=== PATIENT | female | born 1935 | race Caucasian/White ===

== ENCOUNTER 2020-12-08 13:49 | Inpatient (IN) | payer MEDICARE, OTHER ==
[~2020-12-08] VITALS: Ht 167.6 cm; Wt 65.0 kg
[~2020-12-08 13:49] MED LIST: ARICEPT 5 MG TAB5 MG PO; AZITHROMYCIN 2250 MG PO; CALCIUM 600 +1 EAC1 PO; CEFUROXIME500 MG PO; FLAXSEED OIL1000 MG PO; FLONASE 0.05%50 MCG NASAL; KLOR-CON 1010 MEQ PO; LEVOTHYROXIN0.075 MG PO; PRISTIQ50 M1 PO; RED YEAST RICE600 MG PO; RESTORIL15 MG PO; UNICOMPLEX M TA1 TA1 PO; ZOFRAN4 MG PO
[2020-12-08 13:50] VITALS: BP 149/71
[2020-12-08] MEDS ORDERED: NORVASC5 MG PO (14:08)
[2020-12-08] MEDS ORDERED: DULCOLAX STOOL100 M1 PO (14:08)
[2020-12-08] MEDS ORDERED: DESVENLAFAXINE100 MG PO (14:08)
[2020-12-08] MEDS ORDERED: LISINOPRIL20 MG PO (14:09)
[2020-12-08] MEDS ORDERED: LEVO-T50 MCG PO (14:09)
[2020-12-08] MEDS ORDERED: FLONASE 0.05%50 MCG NARES (14:09)
[2020-12-08] MEDS ORDERED: NAMENDA 10 MG T10 MG PO (14:09)
[2020-12-08] MEDS ORDERED: MELATONIN3 M1 PO (14:09)
[2020-12-08] MEDS ORDERED: SENNA8.8 MG/5 M PO (14:10)
[2020-12-08] MEDS ORDERED: KAPSPARGO SPRIN25 MG PO (14:10)
[2020-12-08 14:41] LABS: ABSOLUTE EOSINOPHILS 0.1 thou/uL (0.0-0.7); ABSOLUTE LYMPHOCYTES 1.9 thou/uL (0.8-5.3); ABSOLUTE MONOCYTES 1.5 thou/uL (0.0-1.2); ABSOLUTE NEUTROPHILS 8.5 thou/uL (1.6-8.1); BASOPHILS 0.4 %; EOSINOPHILS 0.6 %; HEMATOCRIT 39.3 % (37.0-47.0); HEMOGLOBIN 13.2 gm/dL (12.0-15.0); LYMPHOCYTES 15.8 %; MCH 30.5 pg (26.0-34.0); MCHC 33.5 g/dL (28.0-37.0); MONOCYTES 12.1 %; NUCLEATED RBCS 0 /100WBC; PLATELET COUNT* 259 thou/uL (150-400); POLYS 71.1 %; RBC 4.32 mil/uL (4.20-5.00)
[2020-12-08 15:04] LABS: ALBUMIN 3.3 g/dL (3.4-5.0); CALCIUM 8.5 mg/dL (8.5-10.1); CREATININE 1.4 mg/dL (0.6-1.3); POTASSIUM 3.7 mmol/L (3.5-5.1); TOTAL BILIRUBIN 0.4 mg/dL (<0.1-1.0); TOTAL PROTEIN 7.6 g/dL (6.4-8.2)
--- NOTE | 2020-12-08 15:58 | EKG ---
[place] [address] ELECTROCARDIOGRAM REPORT Name: RYAN ROB Room: [facility]#: [id number] Admission: 12/08/20 Attend Phys: Discharge: Date of : 37 Date of Service: 12/08/20 1430 Report #: [id number] THIS REPORT FOR: //name// [facility] ED Test Date: 2020-12-08 Test Time: 14:30:57 Pat Name: RYAN ROB Department: Room: Gender: Physicist [place]: : 1935 Requested By: Reese Mclaughlin Order Number: [id number] MD: Derrell Ramírez Measurements Intervals [place] Rate: 73 P: -28 MO: 142 QRS: -40 QRSD: 102 T: -18 QT: 443 QTc: 489 Interpretive Statements Sinus rhythm Abnormal R-wave progression, late transition Inferior infarct, old Compared to ECG 06/09/2016 05:56:04 Myocardial infarct finding now present Ventricular premature complex(es) no longer present T-wave abnormality no longer present Electronically Signed On 12-08-2020 15:57:51 CDT by Derrell Ramírez [email or web address] <ELECTRONICALLY SIGNED> By: Derrell Ramírez MD, FAC 12/08/20 1557 1430 1430 Derrell Ramírez MD, [facility] /EPI
[2020-12-08 17:13] LABS: URINE BILIRUBIN NEGATIVE (Negative); URINE BLOOD NEGATIVE (Negative); URINE CLARITY CLEAR; URINE COLOR YELLOW; URINE GLUCOSE-RANDOM NEGATIVE (Negative); URINE KETONES NEGATIVE (Negative); URINE LEUKOCYTES-REFLEX 1+ (Negative); URINE NITRITE-REFLEX NEGATIVE (Negative); URINE PROTEIN NEGATIVE (Negative); URINE SPECIFIC GRAVITY <= 1.005 (1.005-1.030); URINE UROBILINOGEN 0.2 E.U./dl (0.2-1.0)
[2020-12-08 17:27] LABS: CASTS None Seen /LPF (None Seen); SQUAMOUS 4-10 Moderate /LPF (0-3); URINE RBC None Seen /HPF (0-2); URINE WBC-REFLEX 6-15 Few /HPF (0-5)
[2020-12-08 17:28] LABS: CRYSTALS None Seen /LPF (None Seen)
[2020-12-08 19:40] VITALS: BP 159/81
[2020-12-08 21:00] VITALS: BP 172/71
[2020-12-09 03:15] VITALS: BP 165/75
[2020-12-09 08:04] VITALS: BP 166/73
[2020-12-09 10:02] LABS: ABSOLUTE EOSINOPHILS 0.1 thou/uL (0.0-0.7); ABSOLUTE LYMPHOCYTES 2.2 thou/uL (0.8-5.3); ABSOLUTE MONOCYTES 1.4 thou/uL (0.0-1.2); ABSOLUTE NEUTROPHILS 5.8 thou/uL (1.6-8.1); BASOPHILS 0.4 %; EOSINOPHILS 0.9 %; HEMATOCRIT 37.6 % (37.0-47.0); HEMOGLOBIN 12.5 gm/dL (12.0-15.0); LYMPHOCYTES 23.1 %; MCH 30.3 pg (26.0-34.0); MCHC 33.2 g/dL (28.0-37.0); MCV 91.1 fL (80.0-100.0); MONOCYTES 14.9 %; MPV 8.2 fl. (7.2-11.1); NUCLEATED RBCS 0 /100WBC; PLATELET COUNT* 225 thou/uL (150-400); POLYS 60.7 %; RBC 4.12 mil/uL (4.20-5.00); RDW-CV 14.3 % (10.5-14.5); WBC 9.5 thou/uL (4.0-11.0)
[2020-12-09 10:19] LABS: CALCIUM 8.3 mg/dL (8.5-10.1); CREATININE 1.1 mg/dL (0.6-1.3); POTASSIUM 3.6 mmol/L (3.5-5.1)
[2020-12-09 15:45] VITALS: BP 128/54
[2020-12-09 19:40] VITALS: BP 164/69
[2020-12-10 04:04] VITALS: BP 173/91
[2020-12-10 07:50] VITALS: BP 140/80
[2020-12-10] MEDS ORDERED: FLAGYL500 M1 PO (10:36)
[2020-12-10 15:21] VITALS: BP 158/69
[2020-12-10 20:30] VITALS: BP 144/89
[2020-12-11 07:44] VITALS: BP 168/86
[2020-12-11 12:17] VITALS: BP 168/86
[2020-12-11 14:09] VITALS: BP 168/86
[2020-12-11 15:57] VITALS: BP 168/86
== END 2020-12-11 15:55 | disposition home health service (06) | DRG 371 ==
LOC: M.ERS 13:49 → M.TBA-ER 16:37 → M.ORTHSURG 19:56
PROVIDERS: Emergency Medicine Emergency Medical Services; ADMIT Internal Medicine; ATTEND Internal Medicine
DX: A04.9 Bacterial intestinal infection, unspecified (principal); N17.0 Acute kidney failure with tubular necrosis; K57.32 Diverticulitis of large intestine without perforation or abscess without bleeding; R65.10 Systemic inflammatory response syndrome (SIRS) of non-infectious origin without acute organ dysfunction; E03.9 Hypothyroidism, unspecified; F03.90 Unspecified dementia, unspecified severity, without behavioral disturbance, psychotic disturbance, mood disturbance, and anxiety; F32.9 Major depressive disorder, single episode, unspecified; F41.9 Anxiety disorder, unspecified; G47.00 Insomnia, unspecified; M19.90 Unspecified osteoarthritis, unspecified site; N18.9 Chronic kidney disease, unspecified; I12.9 Hypertensive chronic kidney disease with stage 1 through stage 4 chronic kidney disease, or unspecified chronic kidney disease; N28.1 Cyst of kidney, acquired; Z20.822 Contact with and (suspected) exposure to COVID-19; Z79.899 Other long term (current) drug therapy; Z88.0 Allergy status to penicillin

== ENCOUNTER 2021-02-12 19:26 | Emergency (ER) | payer MEDICARE, OTHER ==
[~2021-02-12] VITALS: Ht 162.6 cm; Wt 59.0 kg
[~2021-02-12 19:26] MED LIST changes: +DESVENLAFAXINE100 MG PO; +DULCOLAX STOOL100 M1 PO; +FLAGYL500 M1 PO; +FLONASE 0.05%50 MCG NARES; +KAPSPARGO SPRIN25 MG PO; +LEVO-T50 MCG PO; +LISINOPRIL20 MG PO; +MELATONIN3 M1 PO; +NAMENDA 10 MG T10 MG PO; +NORVASC5 MG PO; +SENNA8.8 MG/5 M PO
[2021-02-12] MEDS ORDERED: ZOFRAN ODT4 MG PO (20:48)
[2021-02-12 21:34] LABS: URINE BILIRUBIN NEGATIVE (Negative); URINE BLOOD TRACE (Negative); URINE CLARITY CLEAR; URINE COLOR YELLOW; URINE GLUCOSE-RANDOM NEGATIVE (Negative); URINE KETONES TRACE (Negative); URINE LEUKOCYTES 1+ (Negative); URINE NITRITE POSITIVE (Negative); URINE PROTEIN TRACE (Negative); URINE SPECIFIC GRAVITY >= 1.030 (1.005-1.030); URINE UROBILINOGEN 0.2 E.U./dl (0.2-1.0)
[2021-02-12] MEDS ORDERED: CEPHALEXIN500 MG PO (21:55)
[2021-02-12 22:05] LABS: HYALINE CASTS 0-3 Few /LPF (None Seen); MUCUS 0-3 Light strn/LPF (None Seen); SQUAMOUS >10 Many /LPF (0-3)
[2021-02-12 22:06] LABS: BACTERIA >30 Many /HPF (None Seen); CRYSTALS None Seen /LPF (None Seen); URINE RBC 3-10 Few /HPF (0-2)
[2021-02-12 23:15] VITALS: BP 120/60
== END 2021-02-12 23:15 | disposition home or self-care (01) ==
LOC: M.ERS 19:26
PROVIDERS: Nurse Practitioner Family
DX: S00.81XA Abrasion of other part of head, initial encounter (principal); N39.0 Urinary tract infection, site not specified; E03.9 Hypothyroidism, unspecified; F03.90 Unspecified dementia, unspecified severity, without behavioral disturbance, psychotic disturbance, mood disturbance, and anxiety; I10 Essential (primary) hypertension; F32.9 Major depressive disorder, single episode, unspecified; F41.9 Anxiety disorder, unspecified; M19.90 Unspecified osteoarthritis, unspecified site; Z79.899 Other long term (current) drug therapy; Z88.0 Allergy status to penicillin; W18.12XA Fall from or off toilet with subsequent striking against object, initial encounter; Y93.89 Activity, other specified; Y92.091 Bathroom in other non-institutional residence as the place of occurrence of the external cause; Y99.8 Other external cause status

== ENCOUNTER 2021-04-05 20:00 | Inpatient (IN) | payer MEDICARE, OTHER ==
[~2021-04-05] VITALS: Ht 167.6 cm; Wt 68.0 kg
[~2021-04-05 20:00] MED LIST changes: +CEPHALEXIN500 MG PO; +ZOFRAN ODT4 MG PO
[2021-04-05 20:03] VITALS: BP 129/67
--- NOTE | 2021-04-05 20:11 | NUR ---
THIS NURSE CONTACTED TRACEE CROWDER (DTR & DPOA) FOR PERMISSION TO TREAT PT HERE. DTR GAVE VERBAL UNDERSTANDING & CONSENT. VERIFIED BY SILVESTRE VASQUEZ.
[2021-04-05 20:52] LABS: ABSOLUTE BASOPHILS 0.1 thou/uL (0.0-0.2); ABSOLUTE EOSINOPHILS 0.1 thou/uL (0.0-0.7); ABSOLUTE LYMPHOCYTES 1.4 thou/uL (0.8-5.3); ABSOLUTE MONOCYTES 1.8 thou/uL (0.0-1.2); ABSOLUTE NEUTROPHILS 8.4 thou/uL (1.6-8.1); BASOPHILS 0.5 %; EOSINOPHILS 0.7 %; HEMATOCRIT 42.4 % (37.0-47.0); LYMPHOCYTES 12.1 %; MCH 30.7 pg (26.0-34.0); MCHC 32.9 g/dL (28.0-37.0); MCV 93.2 fL (80.0-100.0); MONOCYTES 15.6 %; MPV 8.1 fl. (7.2-11.1); NUCLEATED RBCS 0 /100WBC; PLATELET COUNT* 223 thou/uL (150-400); POLYS 71.1 %; RBC 4.55 mil/uL (4.20-5.00); RDW-CV 13.9 % (10.5-14.5); WBC 11.8 thou/uL (4.0-11.0)
[2021-04-05 21:26] LABS: ALBUMIN 3.5 g/dL (3.4-5.0); ALKALINE PHOSPHATASE 169 U/L (46-116); ANION GAP 14 mmol/L (7-16); BUN < 1 mg/dL (7-18); CALCIUM 8.4 mg/dL (8.5-10.1); CHLORIDE 104 mmol/L (98-107); CO2 23 mmol/L (21-32); CREATININE 1.6 mg/dL (0.6-1.3); GLUCOSE 163 mg/dL (70-99); LIPASE 121 U/L (73-393); MAGNESIUM 1.9 mg/dL (1.8-2.4); NT-PRO BRAIN NAT PEPTIDE 708 pg/mL (<300); POTASSIUM 3.8 mmol/L (3.5-5.1); SGOT 27 U/L (15-37); SGPT 32 U/L (30-65); SODIUM 141 mmol/L (136-145); TOTAL BILIRUBIN 0.2 mg/dL (<0.1-1.0); TOTAL PROTEIN 7.8 g/dL (6.4-8.2)
[2021-04-05 22:12] LABS: URINE BILIRUBIN NEGATIVE (Negative); URINE BLOOD 1+ (Negative); URINE CLARITY SL CLOUDY; URINE COLOR YELLOW; URINE GLUCOSE-RANDOM NEGATIVE (Negative); URINE KETONES TRACE (Negative); URINE LEUKOCYTES-REFLEX 3+ (Negative); URINE NITRITE-REFLEX POSITIVE (Negative); URINE PROTEIN NEGATIVE (Negative); URINE SPECIFIC GRAVITY 1.025 (1.005-1.030); URINE UROBILINOGEN 0.2 E.U./dl (0.2-1.0)
[2021-04-05 22:18] LABS: HYALINE CASTS 4-10 Moderate /LPF (None Seen); MUCUS None Seen strn/LPF (None Seen); SQUAMOUS >10 Many /LPF (0-3)
[2021-04-05 22:19] LABS: BACTERIA-REFLEX >30 Many /HPF (None Seen); CRYSTALS None Seen /LPF (None Seen); URINE RBC 0-2 Rare /HPF (0-2); URINE WBC-REFLEX >25 Many /HPF (0-5); WBC CLUMPS Few (None Seen)
[2021-04-06] VITALS (7 sets, daily range): BP systolic 118–182; BP diastolic 59–85
--- NOTE | 2021-04-06 08:22 | NUR ---
RECIEVED REPORT FROM ED RN. PT A&OX1. MANAGER ONCOLOGY IN PLACE. VSS. ADMISSION HISTORY & PHYSICAL ASSESSMENT COMPLETED AND CHARTED. PT ON O2 AT 2L NC. PT TRACING ST ON TELE. PT DENIES ANY PAIN. FALL PRECAUTIONS IN PLACE. CALL LIGHT WITHIN REACH.
--- NOTE | 2021-04-06 10:39 | NUR ---
Case Management Assessment Assessment completed by speaking with pt's daughter, Noris Pérez, DPBARBARA ([phone]). Ms. Pérez reported pt resides in the memory care unit at [facility]. Ms. Pérez reported having no concerns regarding pt's housing and stated she would like pt to return once medically clear for discharge. Ms. Pérez reported pt's only DME is a walker. CM to consult with providers regarding plan for discharge. No needs noted at this time
--- NOTE | 2021-04-06 11:21 | EKG ---
[place] [address] ELECTROCARDIOGRAM REPORT Name: RYAN ROB Room: [address] ADM IN M.R.#: [id number] Admission: 04/05/21 Attend Phys: Allen Rosa Discharge: Date of : 37 Date of Service: 04/05/212023 Report #: [id number] THIS REPORT FOR: //name// [facility] ED Test Date: 2021-04-05 Test Time: 20:24:25 Pat Name: RYAN ROB Department: Room: [facility] Gender: F Drafting Engineer: BENJAMIN : 1935 Requested By: Zonia Sellers Order Number: [id number] MD: Derrell Ramírez Measurements Intervals [place] Rate: 120 P: 55 MI: 137 QRS: -45 QRSD: 95 T: 54 QT: 302 QTc: 427 Interpretive Statements Sinus tachycardia artifact noted Left anterior fascicular block Abnormal R-wave progression, late transition Compared to ECG 12/08/2020 14:30:57 Sinus rhythm no longer present Electronically Signed On 04-06-2021 11:20:54 CDT by Derrell Ramírez [email or web address] <ELECTRONICALLY SIGNED> By: Derrell Ramírez MD, FACC 04/06/21 1120 23 23 Derrell Ramírez MD, FACC /EPI
--- NOTE | 2021-04-06 18:50 | NUR ---
Assumed care at 0730. Pt is alert and oirented to self. Assessment done and charted. Pt had fever and antiobiotics was ordered. Pt also had high blood pressure and patient's home medication was restarted. Patient is doing much better after medication was given. Will continue to provider care.
[2021-04-07] VITALS (8 sets, daily range): BP systolic 95–184; BP diastolic 53–93
[2021-04-07 04:06] LABS: HEMATOCRIT 38.9 % (37.0-47.0); HEMOGLOBIN 12.8 gm/dL (12.0-15.0); MCH 30.2 pg (26.0-34.0); MCV 91.6 fL (80.0-100.0); MPV 8.4 fl. (7.2-11.1); RBC 4.24 mil/uL (4.20-5.00); RDW-CV 13.6 % (10.5-14.5); WBC 14.7 thou/uL (4.0-11.0)
[2021-04-07 04:14] LABS: CALCIUM 8.2 mg/dL (8.5-10.1); CREATININE 1.1 mg/dL (0.6-1.3); POTASSIUM 3.4 mmol/L (3.5-5.1)
--- NOTE | 2021-04-07 17:18 | NUR ---
Assumed care at 0730. Pt is alert and oriented to self. Assessment done and charted. Pt had her CTA PE protocol. Fluid infusing per order. Pt is confused at times. Pt had uneventful day. Will continue care.
[2021-04-08 00:27] VITALS: BP 129/66
[2021-04-08 04:07] LABS: HEMATOCRIT 44.3 % (37.0-47.0); HEMOGLOBIN 14.4 gm/dL (12.0-15.0); MCH 30.5 pg (26.0-34.0); MCHC 32.5 g/dL (28.0-37.0); MCV 93.8 fL (80.0-100.0); MPV 8.4 fl. (7.2-11.1); RBC 4.72 mil/uL (4.20-5.00); RDW-CV 13.7 % (10.5-14.5)
[2021-04-08 04:18] VITALS: BP 143/63
[2021-04-08 04:26] LABS: CREATININE 1.1 mg/dL (0.6-1.3); MAGNESIUM 1.8 mg/dL (1.8-2.4); POTASSIUM 4.3 mmol/L (3.5-5.1)
[2021-04-08 08:26] VITALS: BP 169/76
[2021-04-08 12:00] VITALS: BP 166/85
[2021-04-08 16:00] VITALS: BP 151/83
[2021-04-08 20:00] VITALS: BP 164/76
[2021-04-09] VITALS: BP 168/88
[2021-04-09 04:00] VITALS: BP 155/70
--- NOTE | 2021-04-09 06:11 | NUR ---
ASSUMED CARE OF PT AFTER REPORT AT 1930. PT A&OX2. FORGETFULE. VSS. PHYSICAL ASSESSMENT COMPLETED AND CHARTED. PT ON RA. PT TRACING ST ON TELE. PT DENIES ANY PAIN. FALL PRECAUTIONS IN PLACE. CALL LIGHT WITHIN REACH.
[2021-04-09 08:00] VITALS: BP 167/89
[2021-04-09 11:56] VITALS: BP 145/67
[2021-04-09 15:38] VITALS: BP 167/92
--- NOTE | 2021-04-09 17:06 | NUR ---
Case and plan of care reviewed with physician each weekday during patient's length of stay. Continue plan of care per physician orders. Sepsis, weakness. Continuing IV abx. PT/OT evaluating. CM will continue to follow for discharge planning to return to Memory Care at [facility].
[2021-04-09 20:00] VITALS: BP 148/71
--- NOTE | 2021-04-09 20:38 | NUR ---
I ASSUMED CARE OF THE PATIENT AT 0700. SHE IS ALERT TO SELF AND FORGETFUL. BED IS IN THE LOW LOCKED POSITION AND CALL LIGHT IS IN REACH. PATIENT NEEDS ARE MET DURING HOURLY ROUNDING. PAIN IS PARTIALLY MANAGED WITH PRN MEDS. THE [facility] IS NOTIFIED IN REGARDS TO A FLU SHOT. PATIENT RECEIVED FLU SHOT 04/03/21 ALONG WITH THEIR COVID BOOSTER THE SAME DAY. PATIENT WAS TRANSFERED TO [facility] AT 1845. SHE IS A FEEDER AND TAKES PILLS CRUSHED IN [place] PUDDING. PURWICK IS IN PLACE AND PROPERLY FUNCTIONING. STOOL SAMPLE STILL NEEDS COLLECTED. SHE WAS REPOSITIONED EVERY 2 HOURS.
[2021-04-10 00:52] VITALS: BP 174/83
[2021-04-10 05:01] VITALS: BP 167/71
[2021-04-10 05:07] LABS: HEMATOCRIT 37.3 % (37.0-47.0); MCH 30.3 pg (26.0-34.0); MCHC 33.3 g/dL (28.0-37.0); MCV 91.2 fL (80.0-100.0); MPV 8.1 fl. (7.2-11.1); RBC 4.09 mil/uL (4.20-5.00); RDW-CV 13.4 % (10.5-14.5); WBC 11.6 thou/uL (4.0-11.0)
[2021-04-10 05:17] LABS: HEMOGLOBIN 12.4 gm/dL (12.0-15.0)
[2021-04-10 05:22] LABS: CALCIUM 8.6 mg/dL (8.5-10.1); MAGNESIUM 1.8 mg/dL (1.8-2.4); PHOSPHORUS* 3.1 mg/dL (2.5-4.9)
[2021-04-10 05:26] LABS: POTASSIUM 2.9 mmol/L (3.5-5.1)
[2021-04-10 08:00] VITALS: BP 153/78
[2021-04-10 11:53] VITALS: BP 147/72
--- NOTE | 2021-04-10 15:29 | NUR ---
PLAN OF CARE: PHYSICIAN INFORMS OF PLAN FOR THE PT TO POSSIBLY D/C TOMORROW BACK TO THE MEMORY CARE UNIT AT THE [facility]. CM CONTACTED THE [facility] ADMISSIONS AND LEFT A VM TO RETURN CALL TO DISCUSS PT'S RETURN, AND FAXED PT'S CLINCIAL INFO. CM WILL REMAIN AVAILABLE TO ASSIST AND FOLLOW NEEDED.
[2021-04-10 17:23] VITALS: BP 133/74
[2021-04-10 20:54] VITALS: BP 152/85
[2021-04-11 00:51] VITALS: BP 168/96
--- NOTE | 2021-04-11 05:12 | NUR ---
PT IS ABLE TO COMMUNICATE HER NEEDS TO STAFF WITH MINOR DIFFICULTY; SHE IS ONLY ORIENTED TO SELF AND IS FORGETFUL. SHE HAS DENIED THE NEED FOR PAIN MEDICATION UP TO THIS TIME. SPECIAL ISOLATION PRECAUTIONS MAINTAINED.
[2021-04-11 05:18] VITALS: BP 150/62
[2021-04-11 07:08] LABS: HEMATOCRIT 28.1 % (37.0-47.0); MCH 30.4 pg (26.0-34.0); MCV 92.1 fL (80.0-100.0); MPV 7.8 fl. (7.2-11.1); RBC 3.05 mil/uL (4.20-5.00); RDW-CV 13.5 % (10.5-14.5); WBC 11.3 thou/uL (4.0-11.0)
[2021-04-11] MEDS ORDERED: AMOX TR-K CLV1 EAC3 PO (07:10)
[2021-04-11 07:16] LABS: CALCIUM 7.9 mg/dL (8.5-10.1); HEMOGLOBIN 9.3 gm/dL (12.0-15.0); POTASSIUM 3.7 mmol/L (3.5-5.1)
[2021-04-11 09:45] VITALS: BP 150/78
[2021-04-11 11:33] VITALS: BP 150/78
[2021-04-11 12:00] VITALS: BP 150/75
--- NOTE | 2021-04-11 14:32 | NUR ---
PHYSICIAN INFORMS OF PLAN FOR THE PT TO D/C [facility] TO THE [facility] WITH HH TODAY. CM SPOKE TO THE PT'S DTR TO DISCUSS THIS AND SHE REQUEST HH ORDERS BE FAXED TO [facility], BUT REQUEST THAT THE [facility] ARRANGE THE HH THEY HAD DONE THIS IN THE PAST AND IT WORKED BETTER. CM ARRANGED TRANSPORT WITH [facility] AND THEY RETURNED CALL TO INFORM THAT TRANSPORT IS ARRANGED FOR [phone]. RN CALLED REPORT, AND D/C ORDERS FAXED. CM WILL REMAIN AVAILABLE TO ASSIST AND FOLLOW NEEDED. [facility] PHONE: [phone]
--- NOTE | 2021-04-11 19:45 | NUR ---
Assumed care at 0730. Pt is alert and oirented to self only. Assessment done and charted. Pt was dc'd to SNf. Report called to the SNF. Pt left at 1800 with transportation.
== END 2021-04-11 17:50 | DRG 871 ==
LOC: M.ERS 20:00 → M.TBA-ER 23:14 → M.ORTHSURG 23:14 → M.2W 04-09 18:51
PROVIDERS: Emergency Medicine; Internal Medicine; ADMIT Internal Medicine; ATTEND Internal Medicine
DX: A41.51 Sepsis due to Escherichia coli [E. coli] (principal); N17.0 Acute kidney failure with tubular necrosis; N30.00 Acute cystitis without hematuria; Z20.822 Contact with and (suspected) exposure to COVID-19; E03.9 Hypothyroidism, unspecified; F03.90 Unspecified dementia, unspecified severity, without behavioral disturbance, psychotic disturbance, mood disturbance, and anxiety; I10 Essential (primary) hypertension; F32.9 Major depressive disorder, single episode, unspecified; F41.9 Anxiety disorder, unspecified; M19.90 Unspecified osteoarthritis, unspecified site; G47.00 Insomnia, unspecified; R65.20 Severe sepsis without septic shock; E86.0 Dehydration; E87.6 Hypokalemia; B96.20 Unspecified Escherichia coli [E. coli] as the cause of diseases classified elsewhere; Z88.0 Allergy status to penicillin